=== PATIENT | male | born 1975 | race Caucasian/White ===

== ENCOUNTER 2023-02-21 02:42 | Emergency (ER) | payer SELFPAY ==
[2023-02-21] MEDS ORDERED: Dexamethasone 10 MG/ML VIAL ONE (02:57)
[2023-02-21] MEDS ORDERED: Ondansetron ODT 4 MG TAB ONE (03:07)
[2023-02-21] MEDS ORDERED: Lorazepam 0.5 MG TAB ONE (03:18)
== END 2023-02-21 04:15 | disposition home or self-care (01) ==
LOC: BURERS 02:42
DX: J20.9 Acute bronchitis, unspecified (principal); F41.9 Anxiety disorder, unspecified; F17.200 Nicotine dependence, unspecified, uncomplicated
CPT/HCPCS: 96372; 99283; J1100; Q0162

== ENCOUNTER 2023-02-27 12:10 | Emergency (ER) | payer SELFPAY ==
[2023-02-27] MEDS ORDERED: Sulfameth/Trimethoprim DS 800-160mg TAB ONE (12:47)
[2023-02-27] MEDS ORDERED: Cephalexin 250 MG CAP ONE (12:47)
[2023-02-27] MEDS ORDERED: HYDROcodone/Acetaminophen 5/325 mg Tablet ONE (12:56)
== END 2023-02-27 12:50 | disposition home or self-care (01) ==
LOC: BURERS 12:10
DX: L03.116 Cellulitis of left lower limb (principal); F17.200 Nicotine dependence, unspecified, uncomplicated
CPT/HCPCS: 99283